=== PATIENT | female | born 1965 | race Hispanic/Latino ===

== ENCOUNTER 2018-12-28 00:54 | Emergency (ER) | payer OTHER | END 2018-12-28 02:04 | disposition home or self-care (01) | LOC: EDH 00:54 | DX: J06.9 Acute upper respiratory infection, unspecified (principal); Z88.8 Allergy status to other drugs, medicaments and biological substances; Z90.710 Acquired absence of both cervix and uterus | CPT/HCPCS: 87804; 87880 ==

== ENCOUNTER 2019-01-15 04:34 | Emergency (ER) | payer OTHER ==
[2019-01-15 05:25] LABS: RAPID GROUP A STREP NEGATIVE (NEGATIVE)
== END 2019-01-15 06:15 | disposition home or self-care (01) ==
LOC: EDH 04:34
DX: J20.9 Acute bronchitis, unspecified (principal); Z88.8 Allergy status to other drugs, medicaments and biological substances
CPT/HCPCS: 71046; 87804; 87880